=== PATIENT | female | born 1990 | race African-American/Black ===

== ENCOUNTER 2017-12-14 18:29 | Emergency (ER) | payer OTHER ==
[~2017-12-14] VITALS: Ht 154.9 cm; Wt 81.7 kg
[2017-12-14 18:55] LABS: ABSOLUTE BASOPHILS 0.1 thou/uL (0.0-0.2); ABSOLUTE EOSINOPHILS 0.1 thou/uL (0.0-0.7); ABSOLUTE LYMPHOCYTES 2.7 thou/uL (0.8-5.3); ABSOLUTE MONOCYTES 0.7 thou/uL (0.0-1.2); ABSOLUTE NEUTROPHILS 5.2 thou/uL (1.6-8.1); BASOPHILS 0.6 %; EOSINOPHILS 0.9 %; HEMATOCRIT 39.8 % (37.0-47.0); HEMOGLOBIN 13.4 gm/dL (12.0-15.0); LYMPHOCYTES 30.9 %; MCH 30.9 pg (26.0-34.0); MCHC 33.6 g/dL (28.0-37.0); MCV 91.8 fL (80.0-100.0); MONOCYTES 8.3 %; MPV 7.9 fl. (7.2-11.1); NUCLEATED RBCS 0 /100WBC; PLATELET COUNT* 361 thou/uL (150-400); POLYS 59.3 %; RBC 4.34 mil/uL (4.20-5.00); RDW-CV 13.4 % (10.5-14.5); WBC 8.8 thou/uL (4.0-11.0)
[2017-12-14 19:02] LABS: CALCIUM 9.2 mg/dL (8.5-10.1); CREATININE 0.7 mg/dL (0.6-1.3); POTASSIUM 3.6 mmol/L (3.5-5.1)
[2017-12-14 19:07] LABS: ALBUMIN 3.6 g/dL (3.4-5.0); TOTAL BILIRUBIN 0.4 mg/dL (<0.1-1.0)
[2017-12-14 21:36] VITALS: BP 00/00
== END 2017-12-14 21:00 | disposition left against medical advice (07) ==
LOC: M.ERS 18:29
PROVIDERS: Physician Assistant
DX: O26.891 Other specified pregnancy related conditions, first trimester (principal); R10.9 Unspecified abdominal pain; Z3A.01 Less than 8 weeks gestation of pregnancy

== ENCOUNTER 2018-03-04 22:41 | Emergency (ER) | payer OTHER ==
[~2018-03-04] VITALS: Ht 154.9 cm; Wt 81.7 kg
[2018-03-04 22:46] VITALS: BP 144/81
[2018-03-04] MEDS ORDERED: AMOXICILLIN 50500 MG PO (22:52)
== END 2018-03-04 23:09 | disposition home or self-care (01) ==
LOC: M.ERS 22:41
DX: J06.9 Acute upper respiratory infection, unspecified (principal)

== ENCOUNTER 2019-04-05 21:07 | Emergency (ER) | payer OTHER ==
[~2019-04-05] VITALS: Ht 154.9 cm; Wt 80.3 kg
[~2019-04-05 21:07] MED LIST: AMOXICILLIN 50500 MG PO
[2019-04-05] MEDS ORDERED: NOHOMEMEDICATIONS (21:21)
[2019-04-05] MEDS ORDERED: TRAMADOL 50 MG50 MG PO (21:40)
[2019-04-05 22:26] VITALS: BP 143/93
== END 2019-04-05 22:37 | disposition home or self-care (01) ==
LOC: M.ERS 21:07
DX: S80.212A Abrasion, left knee, initial encounter (principal); V89.2XXA Person injured in unspecified motor-vehicle accident, traffic, initial encounter; Y92.89 Other specified places as the place of occurrence of the external cause; Y93.89 Activity, other specified; Y99.8 Other external cause status